=== PATIENT | female | born 1990 | race American Indian/Alaskan Native ===

== ENCOUNTER 2019-05-31 09:47 | Emergency (ER) | payer MEDICAID, OTHER ==
[2019-05-31 10:02] VITALS: BP 112/64
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
== END 2019-05-31 11:36 | disposition home or self-care (01) ==
LOC: ED 09:47
DX: S20.212A Contusion of left front wall of thorax, initial encounter (principal); F17.200 Nicotine dependence, unspecified, uncomplicated; Z79.899 Other long term (current) drug therapy; V89.2XXA Person injured in unspecified motor-vehicle accident, traffic, initial encounter; Y93.89 Activity, other specified; Y92.488 Other paved roadways as the place of occurrence of the external cause; Y99.8 Other external cause status
CPT/HCPCS: 71045; 99283

== ENCOUNTER 2021-07-16 13:30 | Emergency (ER) | payer BC, OTHER ==
[2021-07-16 13:35] VITALS: BP 173/85
[2021-07-16] MEDS ORDERED: ACETAMINOPHEN 500 MG TAB PO ONE (13:40)
[2021-07-16 14:08] LABS: Bilirubin,Urine NEG (Negative); Blood,Urine NEG (Negative); Color,Urine Yellow (Yellow); Protein,Urine <15 mg/dL mg/dL (Negative); Urobilinogen,Urine < 2.0 mg/dL (<2.0)
[2021-07-16 14:10] LABS: Basophils % (Auto) 0.5 % (0.0-1.8); Eosinophils % (Auto) 0.8 % (0.0-4.3); Hematocrit 40.5 % (30.3-42.9); Hemoglobin 12.7 gm/dl (10.1-14.3); Lymphocytes # (Auto) 1.8 K/mm3 (1.2-5.4); Lymphocytes % (Auto) 36.3 % (13.4-35.0); Mean Corpuscular HGB Conc 32 % (30-34); Mean Corpuscular Volume 84 fl (79-97); Monocytes # (Auto) 0.4 K/mm3 (0.0-0.8); Monocytes % (Auto) 8.5 % (0.0-7.3); Platelet Count 169 K/mm3 (140-440); Red Blood Count 4.85 M/mm3 (3.65-5.03); Red Cell Distribution Width 14.6 % (13.2-15.2)
[2021-07-16 14:19] LABS: INR 0.91 (0.87-1.13)
[2021-07-16 14:20] LABS: Partial Thromboplastin Time 25.4 Sec. (24.2-36.6)
--- NOTE | 2021-07-16 14:56 | Emergency Department Report ---
ED HPI - General Chief complaint: Vaginal Bleeding Stated complaint: VAGINAL BLEEDING/ Time Seen by Provider: 07/16/21 13:36 Source: patient Mode of arrival: Ambulatory Limitations: No Limitations - History of Present Illness Initial comments: This is a 31-year-old female nontoxic, well nourished in appearance, no acute signs of distress presents to the ED with c/o of vaginal bleeding and pelvic cramping x 2 weeks. Currently patient stated had some spotting yesterday but currently denies any vaginal bleeding. Patient denies any abdominal pain. Patient denies any vaginal discharge or foul odor. Patient denies any nausea, vo miting, chest pain, shortness of breathe, fever, chills, headache, stiff neck, numbness, tingling. Patient denies any urinary symptoms. Patient denies any allergies or PMH. MD Complaint: vaginal bleeding -: days(s) Location: pelvis Radiation: none Severity: mild Severity scale (0 -10): 3 Quality: cramping Consistency: constant Improves with: none Worsens with: none Associated symptoms: vaginal bleeding. denies: nausea/vomiting, vaginal discharge, abdominal pain, dysuria, headache, vision changes, malaise, dysparuenia, rash, seizure, shortness of breath, syncope, weakness Vaginal bleeding: none :: Yes Number of weeks : 5 Pre- care: none - Related Data Previous Rx's Medication Instructions Recorded Last Taken Type Vit,Calc76/Iron/Folic 1 each PO QDAY #30 tablet 10/03/14 06/02/15 09:00 Rx [Prenatabs Rx Tablet] 1 Cyclobenzaprine HCl [Flexeril 5 MG 5 mg PO TID PRN #21 tab 05/31/19 Unknown Rx TAB] Naproxen [Naprosyn] 500 mg PO BID #14 tablet 05/31/19 Unknown Rx Allergies Allergy/AdvReac Type Severity Reaction Status Date / Time No Known Allergies Allergy Verified 05/31/19 09:58 ED Review of Systems ROS: Stated complaint: VAGINAL BLEEDING/ Other details as noted in HPI Comment: All other systems reviewed and negative Constitutional: denies: chills, fever Eyes: denies: eye pain, eye discharge, vision change ENT: denies: ear pain, throat pain Respiratory: denies: cough, shortness of breath, wheezing Cardiovascular: denies: chest pain, palpitations Endocrine: no symptoms reported Gastrointestinal: denies: abdominal pain, nausea, diarrhea Genitourinary: abnormal menses. denies: urgency, dysuria, frequency, hematuria, discharge, dyspareunia Musculoskeletal: denies: back pain, joint swelling, arthralgia Skin: denies: rash, lesions Neurological: denies: headache, weakness, paresthesias Psychiatric: denies: anxiety, depression Hematological/Lymphatic: denies: easy bleeding, easy bruising ED Past Medical Hx - Past Medical History Hx Hypertension: No Hx Congestive Heart Failure: No Hx Diabetes: No Hx Deep Vein Thrombosis: No Hx Renal Disease: No Hx Sickle Cell Disease: No Hx Seizures: No Hx Asthma: No Hx COPD: No Hx HIV: No - Social History Smoking Status: Current Some Day Smoker - Medications Home Medications: Home Medications Medication Instructions Recorded Confirmed Last Taken Type Vit,Calc76/Iron/Folic 1 each PO QDAY #30 tablet 10/03/14 06/03/15 06/02/15 09:00 Rx [Prenatabs Rx Tablet] 1 Cyclobenzaprine HCl [Flexeril 5 MG 5 mg PO TID PRN #21 tab 05/31/19 Unknown Rx TAB] Naproxen [Naprosyn] 500 mg PO BID #14 tablet 05/31/19 Unknown Rx ED Physical Exam - General Limitations: No Limitations General appearance: alert, in no apparent distress - Head Head exam: Present: atraumatic, normocephalic - Eye Eye exam: Present: normal appearance - Neck Neck exam: Present: normal inspection, full ROM. Absent: lymphadenopathy - Respiratory Respiratory exam: Absent: respiratory distress - Cardiovascular Cardiovascular Exam: Present: regular rate, normal rhythm, normal heart sounds. Absent: bradycardia, tachycardia, irregular rhythm, systolic murmur, diastolic murmur, rubs, gallop - GI/Abdominal GI/Abdominal exam: Present: soft, normal bowel sounds. Absent: distended, tenderness, guarding, rebound, rigid, diminished bowel sounds - Extremities Exam Extremities exam: Present: normal inspection, full ROM, normal capillary refill. Absent: tenderness - Back Exam Back exam: Present: normal inspection, full ROM. Absent: tenderness, CVA tenderness (R), CVA tenderness (L), muscle spasm, paraspinal tenderness, vertebral tenderness, rash noted - Neurological Exam Neurological exam: Present: alert, oriented X3, normal gait - Psychiatric Psychiatric exam: Present: normal affect, normal mood - Skin Skin exam: Present: warm, dry, intact, normal color. Absent: rash ED Course Vital Signs 07/16/21 13:34 Temperature 98 F Pulse Rate 105 H Respiratory 16 Rate Blood Pressure 173/85 [Right] O2 Sat by Pulse 98 Oximetry - Reevaluation(s) Reevaluation #1: 07/16/21 14:56 Patient is speaking in full sentences with no signs of distress noted. ED Medical Decision Making - Lab Data Result diagrams: 07/16/21 13:56 Lab Results 07/16/21 07/16/21 07/16/21 Range/Units 13:56 13:56 13:56 WBC 5.0 (4.5-11.0) K/mm3 RBC 4.85 (3.65-5.03) M/mm3 Hgb 12.7 (10.1-14.3) gm/dl Hct 40.5 (30.3-42.9) % MCV 84 (79-97) fl MCH 26 L (28-32) pg MCHC 32 (30-34) % RDW 14.6 (13.2-15.2) % Plt Count 169 (140-440) K/mm3 Lymph % (Auto) 36.3 H (13.4-35.0) % [place] % (Auto) 8.5 H (0.0-7.3) % Eos % (Auto) 0.8 (0.0-4.3) % Baso % (Auto) 0.5 (0.0-1.8) % Lymph # (Auto) 1.8 (1.2-5.4) K/mm3 [place] # (Auto) 0.4 (0.0-0.8) K/mm3 Eos # (Auto) 0.0 (0.0-0.4) K/mm3 Baso # (Auto) 0.0 (0.0-0.1) K/mm3 Seg Neutrophils % 53.9 (40.0-70.0) % Seg Neutrophils # 2.7 (1.8-7.7) K/mm3 PT 13.3 (12.2-14.9) Sec. INR 0.91 (0.87-1.13) APTT 25.4 (24.2-36.6) Sec. HCG, Quant (0-4) mIU/mL Urine Color Yellow (Yellow) Urine Turbidity Clear (Clear) Urine pH 6.0 (5.0-7.0) Ur Specific [place] 1.011 (1.003-1.030) Urine Protein <15 mg/dl (Negative) mg/dL Urine Glucose (UA) Neg (Negative) mg/dL Urine Ketones Neg (Negative) mg/dL Urine Blood Neg (Negative) Urine Nitrite Neg (Negative) Urine Bilirubin Neg (Negative) Urine Urobilinogen < 2.0 (<2.0) mg/dL Ur Leukocyte Esterase Sm (Negative) Urine WBC (Auto) 1.0 (0.0-6.0) /HPF Urine RBC (Auto) 1.0 (0.0-6.0) /HPF U Epithel Cells (Auto) 2.0 (0-13.0) /HPF Urine WBC Clumps Few /HPF Blood Type 07/16/21 07/16/21 Range/Units 13:56 13:56 WBC (4.5-11.0) K/mm3 RBC (3.65-5.03) M/mm3 Hgb (10.1-14.3) gm/dl Hct (30.3-42.9) % MCV (79-97) fl MCH (28-32) pg MCHC (30-34) % RDW (13.2-15.2) % Plt Count (140-440) K/mm3 Lymph % (Auto) (13.4-35.0) % [place] % (Auto) (0.0-7.3) % Eos % (Auto) (0.0-4.3) % Baso % (Auto) (0.0-1.8) % Lymph # (Auto) (1.2-5.4) K/mm3 [place] # (Auto) (0.0-0.8) K/mm3 Eos # (Auto) (0.0-0.4) K/mm3 Baso # (Auto) (0.0-0.1) K/mm3 Seg Neutrophils % (40.0-70.0) % Seg Neutrophils # (1.8-7.7) K/mm3 PT (12.2-14.9) Sec. INR (0.87-1.13) APTT (24.2-36.6) Sec. HCG, Quant 6637 H (0-4) mIU/mL Urine Color (Yellow) Urine Turbidity (Clear) Urine pH (5.0-7.0) Ur Specific [place] (1.003-1.030) Urine Protein (Negative) mg/dL Urine Glucose (UA) (Negative) mg/dL Urine Ketones (Negative) mg/dL Urine Blood (Negative) Urine Nitrite (Negative) Urine Bilirubin (Negative) Urine Urobilinogen (<2.0) mg/dL Ur Leukocyte Esterase (Negative) Urine WBC (Auto) (0.0-6.0) /HPF Urine RBC (Auto) (0.0-6.0) /HPF U Epithel Cells (Auto) (0-13.0) /HPF Urine WBC Clumps /HPF Blood Type B POSITIVE - Radiology Data [facility] [address] [place] [address] Ultrasound Report Signed Patient: JUANPABLO ALVA MR#: [id number] : 1990 Acct:[id number] Age/Sex: 31 / F ADM Date: 07/16/21 Loc: ED Attending Dr: Ordering Physician: SALLY ORTIZ NP Date of Service: 07/16/21 Procedure(s): US OB <= 14 weeks fetus Accession Number(s): [id number] cc: SALLY ORTIZ NP ULTRASOUND OBSTETRIC INDICATION / CLINICAL INFORMATION: VAGINAL BL EEDING. Clinical Gestational Age (GA) in weeks, days: 5, 6 TECHNIQUE: Transabdominal. COMPARISON: None available. FINDINGS: GESTATIONAL SAC: Well- defined oval shape and intrauterine in location. YOLK SAC: No significant abnormality EMBRYO/FETUS: Not seen ADNEXA: No significant abnormality. FREE FLUI D: None. ADDITIONAL FINDINGS: None. IMPRESSION: There is a gestational sac and yolk sac seen within the endometrial canal. The mean sac diameter measures 1.3 cm corresponding to a 6 week 1 day gestation. This is well below the mean sac diameter needed to evaluate for viability. This likely represents an early gestation. Recommend repeat ultrasound in 7-10 days. Signer Name: Alcides Hernandez DO Signed: 07/16/2021 3:51 PM Workstation Name: [email or web address] Transcribed By: DEYSI Dictated By: ALCIDES HERNANDEZ DO Electronically Authenticated By: ALCIDES HERNANDEZ DO Signed Date/Time: 07/16/211550 DD/ 47 TD/TT: [facility] [address] [place] [address] Ultrasound Report Signed Patient: JUANPABLO ALAV MR#: [id number] : 1990 Acct:[id number] Age/Sex: 31 / F ADM Date: 07/16/21 Loc: ED Atten ding Dr: Ordering Physician: SALLY ORTIZ NP Date of Service: 07/16/21 Procedure(s): US OB transvaginal Accession Number(s): [id number] cc: SALLY ORTIZ NP ULTRASOUND OBSTETRIC INDICATION / CLINICAL INFORMATION: VAGINAL BLEEDING. Clinical Gestational Age (GA) in weeks, days: 5, 6 TECHNIQUE: Transab dominal. COMPARISON: None available. FINDINGS: GESTATIONAL SAC: Well-defined oval shape and intrauterine in location. YOLK SAC: No significant abnormality EMBRYO/FETUS: Not seen ADNEXA: No significant abnormality. FREE FLUID: None. ADDITIONAL FINDINGS: None. IMPRESSION: There is a gestational sac and yolk sac seen within the endometrial canal. The mean sac diameter measures 1.3 cm corresponding to a 6 week 1 day gestation. This is well below the mean sac diameter needed to evaluate for viability. This likely represents an early gestation. Recommend repeat ultrasound in 7-10 days. Signer Name: Alcides Hernandez DO Signed: 07/16/2021 3:51 PM Workstation Name: [id number] Transcribed By: DEYSI Dictated By: ALCIDES HERNANDEZ DO Electronically Authenticated By: ALCIDES HERNANDEZ DO Signed Date/Time: 07/16/211550 DD/ 47 TD/TT: - Medical Decision Making This is a 31-year-old female presents with threatened miscarriage. Patient is stable and was examined by me. Normal abdominal exam. US OB obtained and dictated by the radiologist. Ua obtained. Quantative serum test obtained. Patient notified of the US report with no questions noted by the patient. Patient was instructed f/u with [facility] in 3-5 days. RH factor positive. Labs within normal limits. At time of discharge, the patient does not seem toxic or ill in appearance. No acute signs of distress noted. Patient agrees to discharge treatment plan of care. No further questions noted by the patient. Critical care attestation.: If time is entered above; I have spent that time in minutes in the direct care of this critically ill patient, excluding procedure time. ED Disposition Clinical Impression: Threatened miscarriage Disposition: HOME / SELF CARE / HOMELESS Is pt being admited?: No Does the pt Need Aspirin: No Condition: Stable Instructions: Threatened Miscarriage Additional Instructions: Follow-up with a [facility] doctor in 3-5 days or if symptoms worsen and continue return to emergency room as soon as possible. Referrals: [facility]IMARY [facility] [Primary Care Provider] - 3-5 Days [facility] [Provider Group] - 3-5 Days [facility] [Provider Group] - 3-5 Days Forms: Work/School Release Form(ED) Time of Disposition: 16:08
--- NOTE | 2021-07-16 15:55 | Ultrasound Report ---
ULTRASOUND OBSTETRIC INDICATION / CLINICAL INFORMATION: VAGINAL BLEEDING. Clinical Gestational Age (GA) in weeks, days: 5, 6 TECHNIQUE: Transabdominal. COMPARISON: None available. FINDINGS: GESTATIONAL SAC: Well-defined oval shape and intrauterine in location. YOLK SAC: No significant abnormality EMBRYO/FETUS: Not seen ADNEXA: No significant abnormality. FREE FLUID: None. ADDITIONAL FINDINGS: None. IMPRESSION: There is a gestational sac and yolk sac seen within the endometrial canal. The mean sac diameter sarah ures 1.3 cm corresponding to a 6 week 1 day gestation. This is well below the mean sac diameter neede d to evaluate for viability. This likely represents an early gestation. Recommend repeat ultrasound i n 7-10 days. Signer Name: Alcides Hernandez DO Signed: 07/16/2021 3:51 PM Workstation Name: [email or web address]
== END 2021-07-16 16:20 | disposition home or self-care (01) ==
LOC: ED 13:30
DX: O20.0 Threatened abortion (principal); F17.200 Nicotine dependence, unspecified, uncomplicated
CPT/HCPCS: 36415; 76801; 76817; 81001; 84702; 85025; 85610; 85730; 86900; 86901; 99284

== ENCOUNTER 2021-09-22 21:18 | Emergency (ER) | payer BC | END 2021-09-22 21:50 | disposition left against medical advice (07) | LOC: ED 21:18 | DX: O46.91 Antepartum hemorrhage, unspecified, first trimester (principal); Z53.21 Procedure and treatment not carried out due to patient leaving prior to being seen by health care provider ==